=== PATIENT | female | born 1930 | race Caucasian/White ===

== ENCOUNTER 2019-06-10 16:45 | Inpatient (IN) | payer OTHER ==
[~2019-06-10] VITALS: Ht 160 cm; Wt 87.1 kg
[2019-06-10] MEDS ORDERED: TIMO.5OPSO BOTHEYES (16:58)
[2019-06-10] MEDS ORDERED: Cartia Xt240 MG PO (16:58)
[2019-06-10] MEDS ORDERED: ASPI81CH PO (16:59)
[2019-06-10 20:55] LABS: Calcium, Ionized (POC) 1.17 mmol/L (1.10-1.46); Chloride (POC) 105 mmol/L (98-108); Creatinine (POC) 1.1 mg/dL (0.6-1.0); Glucose (ISTAT POC) 184 mg/dL (70-99); Hemoglobin (POC) 12.9 g/dL (12.0-16.0); Sodium (POC) 136 mmol/L (135-148); Total CO2 (POC) 24 mmol/L (21-32)
[2019-06-10 22:36] LABS: Albumin, Blood 3.4 g/dL (3.4-5.0); Albumin/Globulin Ratio 0.8 (0.8-1.8); Bilirubin, Total 0.4 mg/dL (0.1-1.0); Bun/Creatinine Ratio 21.3 (12.0-20.0); Calcium, Blood 8.8 mg/dL (8.5-10.1); Creatinine, Blood 0.99 mg/dL (0.40-1.00); Potassium, Blood 5.1 mmol/L (3.5-5.5); Total Protein, Blood 7.4 g/dL (6.4-8.2)
[2019-06-10 23:16] LABS: BASOPHILS ABSOLUTE AUTO 0.06 K/mm3 (0.00-0.23); BASOPHILS PERCENT AUTO 0 % (0-2); EOSINOPHILS ABSOLUTE AUTO 0.06 K/mm3 (0.00-0.68); EOSINOPHILS PERCENT AUTO 0 % (0-6); Hematocrit 41.9 % (33.0-51.0); Hemoglobin 12.7 g/dL (11.5-16.0); IMMATURE GRAN ABSOLUTE AUTO 0.06 K/mm3 (0.00-0.10); IMMATURE GRAN PERCENT AUTO 0 % (0-1); LYMPHOCYTES ABSOLUTE AUTO 1.39 K/mm3 (0.84-5.20); LYMPHOCYTES PERCENT AUTO 8 % (21-46); MONOCYTES PERCENT AUTO 6 % (4-13); Mean Corpuscular HGB 26.6 pg (26.0-34.0); Mean Corpuscular HGB Conc 30.3 g/dL (31.5-36.5); Mean Corpuscular Volume 88 fL (80-100); Mean Platelet Volume 9.5 fL (9.1-12.4); NEUTROPHILS ABSOLUTE AUTO 13.88 K/mm3 (1.96-9.15); NEUTROPHILS PERCENT AUTO 84 % (41-73); Platelet Count 276 K/mm3 (150-400); RDW Coefficient Variation 13.8 % (11.7-14.2); RDW Standard Deviation 44.8 fL (35.1-46.3); Red Blood Cell Count 4.77 M/mm3 (3.80-5.20); White Blood Cell Count 16.45 K/mm3 (4.00-11.30)
[2019-06-10] MEDS ORDERED: THERA-D2000 UNIT PO (23:31)
[2019-06-10 23:33] LABS: International Normalized Ratio 0.99; Prothrombin Time Results 10.6 Sec (9.7-11.5)
[2019-06-11 05:36] LABS: Source, Urine Clean Catch
[2019-06-11 05:47] LABS: Bilirubin, Urine Neg (Neg); Blood, Urine Neg (Neg); Glucose Qualitative, Urine Neg (Neg); Ketones, Urine Neg (Neg); Leukocyte Esterase, Urine 1+ (Neg); Nitrite, Urine Pos (Neg); Protein, Urine Neg (Neg); Urobilinogen, Urine NORM (Normal)
[2019-06-11 05:52] LABS: Appearance, Urine Hazy (Clear); Color, Urine Yellow (P-Yellow)
[2019-06-11 05:53] LABS: Bacteria Many /hpf; Red Blood Cells, Urine Not Seen /hpf (0-2); Squamous Epithelial Cells Not Seen /hpf (Few)
[2019-06-11 06:17] LABS: Hematocrit 38.5 % (33.0-51.0); Hemoglobin 11.8 g/dL (11.5-16.0); Mean Corpuscular HGB 26.6 pg (26.0-34.0); Mean Corpuscular HGB Conc 30.6 g/dL (31.5-36.5); Mean Corpuscular Volume 87 fL (80-100); Mean Platelet Volume 9.3 fL (9.1-12.4); Platelet Count 243 K/mm3 (150-400); RDW Standard Deviation 44.5 fL (35.1-46.3); Red Blood Cell Count 4.43 M/mm3 (3.80-5.20)
[2019-06-11 06:41] LABS: Alanine Aminotransfer (ALT/SGP 14 U/L (12-78); Albumin, Blood 3.1 g/dL (3.4-5.0); Albumin/Globulin Ratio 0.8 (0.8-1.8); Alk Phos 74 U/L (50-136); Anion Gap 6 mmol/L (6-16); Aspartate Aminotrans (AST/SGOT 14 U/L (12-37); Bilirubin, Total 0.4 mg/dL (0.1-1.0); Blood Urea Nitrogen 20 mg/dL (8-24); Bun/Creatinine Ratio 21.9 (12.0-20.0); CO2, Blood 23 mmol/L (21-32); Calcium, Blood 8.7 mg/dL (8.5-10.1); Chloride, Blood 109 mmol/L (98-108); Creatinine, Blood 0.91 mg/dL (0.40-1.00); Globulin, Blood 3.7 g/dL (2.2-4.0); Glomerular Filtration Rate >60 (60-); Glucose, Blood 131 mg/dL (70-99); Potassium, Blood 5.2 mmol/L (3.5-5.5); Sodium, Blood 138 mmol/L (136-145); Total Protein, Blood 6.8 g/dL (6.4-8.2)
--- NOTE | 2019-06-11 07:16 | NUR ---
SHIFT SUMMARY- PT. ARRIVED FROM ED. A&O, ON BEDREST WITH RT HUMERAL FX DUE TO FALL AT HOME AND SYNCOPE. STATED UNABLE TO WALK AND IS WEAK. PT. HAD NOT VOIDED X6HRS, BLADDER SCAN PERFORMED = 387. NOTIFIED PHYSICIAN, RECEIVED ORDER FOR 1X STRAIGHT CATH. PT. HAD OUTPUT OF 500ML OF URINE FROM CATHETER. TOLERATED WELL. PT. INCONTINENT, ATTENDS IN PLACE. NO OTHER ACUTE CHANGES TO CONDITION. CALL LIGHT WITHIN REACH AND SIDE RAILS UP X2. WILL CONT TO MONITOR.
--- NOTE | 2019-06-11 07:53 | NUR ---
DR. ALVARENGA CONTACT CALLED DR. ALVARENGA. ADVISED OF RATE FOR PATIENT SINUS ALANA 45 AND SYNCOPAL EPISODES. UNABLE TO AMBULATE PATIENT A RESULT. DR. ALVARENGA REQUESTED ORTHOSTATIC BP AND WILL VISIT PATIENT SOON.
--- NOTE | 2019-06-11 18:14 | NUR ---
SHIFT SUMMARY PATIENT A/O X 4. MAKES NEEDS KNOWN. AWAITING CONSULT FROM ORTHO FOR THE RIGHT ARM FRACTURE. PATIENT CONTINENT. CALLS APPROPRIATELY AND HAS HAD FAMILY AT BEDSIDE. PATIENT HAS HAD EPISODES OF BRADYCARDIA AND DECREASED DOSES OF RATE CONTROL MEDS. LN TO CONTINUE TO MONITOR.
--- NOTE | 2019-06-12 07:25 | NUR ---
SHIFT SUMMARY PT IS AN 89 Y/O FEMALE, ADMITTED FOR A SYNCOPAL EPISODE AT HOME. PT IS A&O X 2, THOUGH CONFUSED AND FORGETFUL AT TIMES. THE PT DID REPORT PAIN IN HER PARISA DUE TO A HUMERUS FX WITH MOVEMENT, BUT OTHERWISE DENIED THE NEED FOR PAIN MEDS. VITAL SIGNS STABLE. PT RECEIVED NS @ 100 ML/HR THROUGH THE NIGHT. NO OTHER ACUTE CHANGES IN PT CONDITION NOTED. REPORT GIVEN TO ONCOMING RN.
[2019-06-12] MEDS ORDERED: AMLO5 PO (14:01)
[2019-06-12] MEDS ORDERED: Percocet 5-3251 EACH PO (14:02)
[2019-06-12] MEDS ORDERED: CEFP200 PO (14:02)
== END 2019-06-12 17:10 | disposition home health service (06) | DRG 563 ==
LOC: ER 16:45 → MEDS 16:46
PROVIDERS: Emergency Medicine; ADMIT Internal Medicine
DX: S42.201A Unspecified fracture of upper end of right humerus, initial encounter for closed fracture (principal); N39.0 Urinary tract infection, site not specified; W19.XXXA Unspecified fall, initial encounter; I95.9 Hypotension, unspecified; I10 Essential (primary) hypertension; Z79.82 Long term (current) use of aspirin; E86.0 Dehydration
CPT/HCPCS: 36415; 73060; 73080; 80047; 80053; 81001; 85014; 85025; 85027; 85610; 87077; 87086; 87186; 90686; 93005; 93010; 96361; 96365; 96372; 96375; 97110; 97162; 97530; 99285-25; A9270; G0008; G0378; J0696; J1650; J3010; J7030